=== PATIENT | male | born 1990 | race Caucasian/White ===

== ENCOUNTER 2016-04-28 17:07 | Emergency (ER) | payer SELFPAY ==
[~2016-04-28] VITALS: Ht 167.6 cm; Wt 61.9 kg
[~2016-04-28 17:07] MED LIST: BACTRIM,SEPT1 TABLET PO; IBUPROFEN800 MG PO; KEFLEX500 MG PO; MOTRIN800 MG PO; NORCO 7.5/321 TABLET PO; PERCOCET 5/31 TABLET PO; no home
[2016-04-28] MEDS ORDERED: PERCOCET 5/31 TABLET PO (19:54)
[2016-04-28] MEDS ORDERED: KEFLEX500 MG PO (19:54)
[2016-04-28 20:16] VITALS: BP 133/79
== END 2016-04-28 20:20 | disposition home or self-care (01) ==
LOC: EME 17:07
PROC: 2W3CX1Z Immobilization of Right Lower Arm using Splint (ICD-10-PCS; principal; 2016-04-28)
DX: S63.501A Unspecified sprain of right wrist, initial encounter (principal); S70.01XA Contusion of right hip, initial encounter; S30.810A Abrasion of lower back and pelvis, initial encounter; F17.200 Nicotine dependence, unspecified, uncomplicated; W17.89XA Other fall from one level to another, initial encounter; Z88.6 Allergy status to analgesic agent
CPT/HCPCS: 72100; 72170; 73110; 73130; 81003; 99281; 99284

== ENCOUNTER 2016-07-06 09:42 | Emergency (ER) | payer SELFPAY ==
[~2016-07-06] VITALS: Ht 167.6 cm; Wt 64.3 kg
[2016-07-06 10:04] VITALS: BP 124/83
[2016-07-06] MEDS ORDERED: MOTRIN600 MG PO (11:36)
== END 2016-07-06 11:50 | disposition home or self-care (01) ==
LOC: EME 09:42
DX: G89.29 Other chronic pain (principal); M79.641 Pain in right hand; M25.531 Pain in right wrist; R20.0 Anesthesia of skin
CPT/HCPCS: 73110; 73130; 99281; 99283

== ENCOUNTER 2016-08-11 22:14 | Emergency (ER) | payer SELFPAY ==
[~2016-08-11] VITALS: Ht 167.6 cm; Wt 64.9 kg
[~2016-08-11 22:14] MED LIST changes: +MOTRIN600 MG PO
[2016-08-12] MEDS ORDERED: NAPROSYN500 MG PO (00:24)
[2016-08-12 00:29] VITALS: BP 141/94
== END 2016-08-12 00:31 | disposition home or self-care (01) ==
LOC: RME 22:14 → EME 22:14 → RME 08-12 00:31
DX: S60.212A Contusion of left wrist, initial encounter (principal); Y08.02XA Assault by strike by baseball bat, initial encounter
CPT/HCPCS: 73090; 99281; 99284